=== PATIENT | female | born 1990 | race Caucasian/White ===

== ENCOUNTER 2022-09-29 08:35 | Emergency (ER) | payer MEDICAID, OTHER ==
[~2022-09-29] VITALS: Ht 165.1 cm; Wt 122.7 kg
[2022-09-29 09:00] LABS: Basophils # (auto) 0 10 ^3/uL (0-0.2); Basophils % (auto) 0.3 % (0.0-2.0); Eosinophils # (auto) 0 10 ^3/uL (0-0.8); Eosinophils % (auto) 0.2 % (0.0-7.0); Hematocrit 44.9 % (36.0-46.0); Lymphocytes # (auto) 0.4 10 ^3/uL (0.4-5.4); Lymphocytes % (auto) 5.9 % (10.0-50.0); Mean Corpuscular Hemoglobin 30.4 pg (28.0-32.0); Mean Corpuscular Hgb Conc. 33.4 g/dL (32.0-36.0); Mean Corpuscular Volume 91.1 fL (80.0-100.0); Monocytes # (auto) 0.3 10 ^3/uL (0-1.3); Monocytes % (auto) 4.1 % (0.0-12.0); Neutrophils # (auto) 6.5 10 ^3/uL (1.6-8.6); Neutrophils % (auto) 89.5 % (37.0-80.0); Nucleated Red Blood Cells % 0.1 %; Red Blood Cells 4.93 10^6/uL (4.0-5.20); Red Cell Distribution Width 12.8 % (11.8-14.3); White Blood Cell 7.3 10^3/uL (4.4-10.8)
[2022-09-29 09:21] LABS: Calcium 9.1 mg/dL (8.5-10.1)
[2022-09-29 09:26] LABS: BUN/Creatinine Ratio 15.4 (10.0-20.0); Bilirubin, Total 0.8 mg/dL (0.2-1.0)
[2022-09-29] MEDS ORDERED: FAMOTIDINE (10MG/ML) 2ML VL IV ONE (10:00)
[2022-09-29] MEDS ORDERED: LIDOCAINE VISCOUS 2% 15ML UD PO ONE (10:00)
[2022-09-29] MEDS ORDERED: LACTATED RINGER'S 1,000 ML IV ONE (10:00)
[2022-09-29] MEDS ORDERED: ONDANSETRON HCL 4 MG/2 ML VIAL IV ONE (10:00)
[2022-09-29] MEDS ORDERED: MAALOX PLUS or MAALOX 30 ML PO ONE (10:00)
[2022-09-29 11:35] LABS: Urine Bacteria NONE SEEN /hpf (None Seen); Urine Blood 2+ /uL (Negative); Urine Mucus FEW (None Seen); Urine Specific Gravity 1.029 (1.001-1.035); Urine WBC 1 /hpf (0 - 5)
[2022-09-29] MEDS ORDERED: ACETAMINOPHEN 325 MG TAB PO ONE (12:00)
[2022-09-29 12:58] VITALS: BP 121/82
[2022-09-29] MEDS ORDERED: ONDA-144 PO (14:27)
== END 2022-09-29 14:41 | disposition home or self-care (01) ==
LOC: ER 08:35
DX: R11.2 Nausea with vomiting, unspecified (principal); R19.7 Diarrhea, unspecified; R10.13 Epigastric pain
CPT/HCPCS: 36415; 71045; 80053; 81001; 81025; 83690; 83880; 84484; 85025; 93005; 96361; 96374; 96375; 99285; J2405; J3490

== ENCOUNTER 2024-04-01 14:57 | Emergency (ER) | payer MEDICAID ==
[~2024-04-01] VITALS: Ht 284.5 cm; Wt 127.3 kg
[~2024-04-01 14:57] MED LIST: ONDA-144 PO
--- NOTE | 2024-04-01 15:43 | ED.PDOC ---
Musculoskeletal HPI Comments A 33 YEAR OLD FEMALE PRESENTS TO THE ED WITH COMPLAINT OF LEFT LOWER EXTREMITY PAIN AND SWELLING. PATIENT STATES SHE HAS A HISTORY OF EDEMA THAT COMES AND GOES AND TAKES MEDICINE FOR THIS ISSUE, BUT NOTES THAT HER LEFT LOWER LEG HAS BEEN SWOLLEN AND PAINFUL FOR THE LAST 4 DAYS. PATIENT WOULD LIKE TO BE EVAL UATED TO RULE OUT A BLOOD CLOT. PATIENT DENIES FEVER, CHILLS, SHORTNESS OF BREATH, CHEST PAIN, ABDOMINAL PAIN, NAUSEA, VOMITING, HEADACHE, OR OTHER COMPLAINTS. NO OTHER SYMPTOMS OR MODIFYING FACTORS AT THIS TIME. PATIENT IS ALERT, ORIENTED X 4, AND HAS STEADY GAIT. Chief Complaint: Lower Extremity Time Seen by MD: 14:59 Reviewed Notes: Nurses Notes, Medications, Allergies Allergies: Coded Allergies: NO KNOWN ALLERGIES (Unverified , 09/29/22) Home Meds Active Scripts Ibuprofen (Ibuprofen) 800 Mg Tab, 1 TAB PO TID, #30 TAB Prov:MAGDIEL ESPINOZA 04/01/24 Ondansetron (Zofran) 4 Mg Tab, 4 MG PO Q8HPRN PRN for 3 Days, #9 TAB Prov:TASHA MARTIN MD 09/29/22 Information Source: Patient Mode of Arrival: Ambulatory Location: Left Extremity Location: Leg (LOWER LEG) Timing: Days Prehospital treatment: None Severity: Moderate Able to Move Extremity: Yes Bear Weight: Fully Pain: Moderate Mechanism: No Trauma, Spontaneous Circumstances: Spontaneous Onset of Symptoms: Spontaneous Symptoms: Swelling, Pain DVT Risk Factors: NONE Last Tetanus: UTD, Unknown Associated signs and symptoms: Leg pain, Other (LEFT LOWER LEG SWELLING) Past Medical History Past Medical History (Other): PCOS, EDEMA Surgical History: Denies all surgeries [facility] History: Denies all [facility] Hx Family History Family History: Reviewed,noncontributory to illness Social History Smoker: Non-Smoker Alcohol: Occasionally Drugs: Denies Drug Use Lives In: Home Constitutional: denies: chills, diaphoresis, fatigue, fever, malaise, sweats, weakness, others EENTM: denies: blurred vision, double vision, ear bleeding, ear discharge, ear drainage, ear pain, ear ringing, eye pain, eye redness, hearing loss, mouth pain, mouth swelling, nasal discharge, nose bleeding, nose congestion, nose pain, photophobia, tearing, throat pain, throat swelling, voice changes, others Respiratory: denies: cough, hemoptysis, orthopnea, SOB at rest, shortness of breath, SOB with excertion, stridor, wheezing, others Cardiovascular: denies: chest pain, dizzy spells, diaphoresis, Dyspnea on exertion, edema, irregular heart beat, left arm pain, lightheadedness, palpitations, PND, syncope, others Gastrointestinal: denies: abdomen distended, abdominal pain, blood streaked bowels, constipated, diarrhea, dysphagia, difficulty swallowing, hematemesis, melena, nausea, poor appetite, poor fluid intake, rectal bleeding, rectal pain, vomiting, others Genitourinary: denies: abnormal vagina bleeding, burning, dyspareunia, dysuria, flank pain, frequency, hematuria, incontinence, pain, , vagina discharge, urgency, others Neurological: denies: dizziness, fainting, headache, left sided numbness, left sided weakness, numbness, paresthesia, pre-existing deficit, right sided numbness, right sided weakness, seizure, speech problems, tingling, tremors, weakness, others Musculoskeletal: reports: muscle pain, others (LEFT LOWER LEG PAIN AND SWELLING); denies: back pain, gout, joint pain, joint swelling, muscle stiffness, neck pain Integumetry: denies: bruises, change in color, change in hair/nails, dryness, laceration, lesions, lumps, rash, wounds, others Allergic/Immunocompromised: denies: Difficulty Healing, Frequent Infections, Hives, Itching, others Hematologic/Lymphatic: denies: anemia, blood clots, easy bleeding, easy bruising, swollen glands, others Endocrine: denies: excessive hunger, excessive sweating, excessive thirst, excessive urination, flushing, intolerance to cold, intolerance to heat, unexplained weight gain, unexplained weight loss, others Psychiatric: denies: anxiety, bipolar disorder, depression, hopeless, panic disorder, schizophrenia, sleepless, suicidal, others All Other Systems: Reviewed and Negative Physical Exam General Appearance: No Apparent Distress, Obese HEENT: Normal ENT Inspection, PERRL/EOMI, Pharynx Normal, TMs Normal Neck: Full Range of Motion, Non-Tender, Normal, Normal Inspection Respiratory: Chest Non-Tender, Lungs Clear, No Accessory Muscle Use, No Respiratory Distress, Normal Breath Sounds Cardiovascular: No Edema, No JVD, No Murmur, No Gallop, Normal Peripheral Pulses, Regular Rate/Rhythm Breast Exam: Deferred Gastrointestinal: No Organomegaly, Non Tender, No Pulsatile Mass, Normal Bowel Sounds, Soft Genitalia: Deferred Pelvic: Deferred Rectal: Deferred Extremities: No calf tenderness, Normal capillary refill, Normal range of motion, No pedal edema, Swelling (SWELLING AND TENDERNESS ON LEFT LOWER LEG, NO ERTYTHEMA AND DVT SIGNS. ), Tender (AND MILD SWELLING ON LEFT LOWER LEG WITH NORMAL SKIN COLOR. 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 Was a procedure done?: No Differential Diagnosis EXT Differential Diagnosis: Deep Vein Thrombosis, Sprain, Strain Other Differential Diagnosis SUPERFICIAL THROMBOSIS X-Ray, Labs, Meds, VS Vital Signs Date Time Temp Pulse Resp B/P (MAP) Pulse Ox O2 Delivery O2 Flow Rate FiO2 04/01/24 16:03 97.0 74 20 160/96 (117) 99 97.0 04/01/24 16:03 74 20 99 Room Air 04/01/24 15:12 97.0 74 20 160/96 (117) 99 Left lower extremity venous duplex Clinical History: LEFT LOWER LEG SWELLING Comparison: None Technique: Duplex Doppler evaluation of the deep venous system of the left lower extremity from the common femoral vein to the popliteal vein including color Doppler and spectral/pulsed waveform analysis was performed. Findings: The common femoral vein demonstrates appropriate compressibility and waveform variability . There is compressibility/patency of the great saphenous vein at the proximal thigh . The femoral vein demonstrates appropriate compressibility and waveform ravindra iability . The deep femoral vein demonstrates appropriate compressibility and waveform variability . The popliteal vein demonstrates appropriate compressibility and waveform variability . There is normal compressibility at the tibioperoneal trunk. Impression: 1. No left femoropopliteal venous thrombosis. ATED BY: SANDY MCKEE MD DICTATED DATE/TIME: 04/01/241617 SIGNED BY: SANDY MCKEE MD SIGNED DATE/TIME: 04/01/241617 CC: Images Reviewed?: Images reviewed and evaluated by me Time of 1ST Reevaluation: 16:33 Reevaluation 1ST: Improved Patient Education/Counseling: Diagnosis, Treatment, Need For Follow Up Family Education/Counseling: Diagnosis, Treatment, Need For Follow Up Medical Screening: No EMC Exist At This Time Departure 1 Departure Time of Disposition: 16:50 Impression: Primary Impression: Edema of left lower extremity Additional Impression: Morbid obesity Disposition: 01 HOME / SELF CARE / HOMELESS Condition: Stable Additional Instructions: FOLLOW-UP WITH PCP IN 1 TO 2 DAYS. TAKE MEDICATIONS PRESCRIBED. RETURN TO ED FOR ANY NEW OR WORSENING SYMPTOMS. e-Prescriptions Ibuprofen (Ibuprofen) 800 Mg Tab 1 TAB PO TID, #30 TAB Prov: MAGDIEL ESPINOZA 04/01/24 Discharged With: Self Critical Care Note Critical Care Time?: No Stability Stability form required: No I personally scribed for MAGDIEL ESPINOZA ([email or web address]) on 04/01/24 at 15:43. Electronically submitted by Raf Vo ([email or web address]). I personally scribed for MAGDIEL ESPINOZA ([email or web address]) on 04/01/24 at 16:25. Electronically submitted by Raf Vo ([email or web address]). MAGDIEL ESPINOZA Apr 01, 2024 15:43
[2024-04-01 16:03] VITALS: BP 160/96; PULSE 74; RESP 20; TEMP 97; O2SAT 99
--- NOTE | 2024-04-01 16:20 | DVH ---
Left lower extremity venous duplex Clinical History: LEFT LOWER LEG SWELLING Comparison: None Technique: Duplex Doppler evaluation of the deep venous system of the left lower extremity from the common femor al vein to the popliteal vein including color Doppler and spectral/pulsed waveform analysis was perfo rmed. Findings: The common femoral vein demonstrates appropriate compressibility and waveform variability . There is compressibility/patency of the great saphenous vein at the proximal thigh . The femoral vein demonstrates appropriate compressibility and waveform variability . The deep femoral vein demonstrates appropriate compressibility and waveform variability . The popliteal vein demonstrates appropriate compressibility and waveform variability . There is normal compressibility at the tibioperoneal trunk. Impression: 1. No left femoropopliteal venous thrombosis.
[2024-04-01] MEDS ORDERED: IBUP-1456 PO (16:31)
== END 2024-04-01 17:23 | disposition home or self-care (01) ==
LOC: ER 14:57
DX: R60.0 Localized edema (principal); M79.605 Pain in left leg
CPT/HCPCS: 93971